=== PATIENT | female | born 1955 | race Caucasian/White ===

== ENCOUNTER 2019-02-02 11:28 | Observation (INO) | payer MEDICARE, MEDICAID, SELFPAY ==
[2019-02-02] VITALS (14 sets, daily range): BP systolic 81–126; BP diastolic 40–71; PULSE 70–106; RESP 15–20; TEMP 36.6–38; O2SAT 95–98; BMI 39.3
--- NOTE | ~2019-02-02 | XR_ITS ---
EXAMINATION: XR retrograde pyelo w/stent LT DATE: 02/02/2019 17:20 INDICATION: Left-sided ureteral stent placement TECHNIQUE: 162 fluoroscopic images of the abdomen and pelvis were obtained during procedure performed by Dr. Brody. Radiologist was not present for the imaging or procedure. The amount of fluoroscopy time used during this procedure was 1.0 minutes. COMPARISON: CT dated 02/02/2019 FINDINGS: Initial image demonstrates retrograde contrast injection into the left ureter. The mid to distal uret er appears normal. There is a filling defect consistent with stone previously seen on prior CT at the transition to a dilated proximal left ureter with moderate left hydronephrosis. Subsequent images de monstrate placement of a left internal ureteral stent with proximal loop formed at the left renal pel vis. The distal tip is in the bladder. IMPRESSION: 1. Obstructing stone at the proximal left ureter with moderate left hydronephrosis. 2. Left internal ureteral stent placement which appears in expected position. See procedure note for further detail. Reviewed, dictated and finalized at location A. TIONAL NURSE IMPRESSION: 1. Obstructing stone at the proximal left ureter with moderate left hydronephro sis. 2. Left internal ureteral stent placement which appears in expected position. S ee procedure note for further detail.
--- NOTE | ~2019-02-02 | CT_ITS ---
EXAMINATION: CT abdomen pelvis wo con EXAM DATE: 02/02/2019 14:47 INDICATION: Left flank pain. TECHNIQUE: Spiral CT of the abdomen and pelvis was performed without contrast. Axial, coronal and s agittal images were reviewed. The dose-length product (DLP) for this examination was 1442.76 mGy-cm. The exposure was tailored according to patient size (auto mA exposure control), and iterative recon struction (ASIR) was used as additional dose reduction technique. There is no prior study for compar elba. FINDINGS: The liver, spleen, adrenal glands and pancreas are unremarkable. Gallbladder not identifie d, patient likely has had cholecystectomy. There are 2 contiguous stones in the proximal aspect of t he left ureter measuring 6 and 5 mm. There is moderate left-sided obstructive nephropathy. Several ad ditional left calyceal stones up to 5 mm. There is a right mid calyceal 3 mm stone. The uterus is no t identified and has likely been surgically resected. The bladder is unremarkable. There is no retr operitoneal or pelvic lymphadenopathy. There is mild to moderate scattered arteriosclerotic disease . The appendix is not positively visualized. There is no pericecal inflammatory change to suggest appe ndicitis. The stomach and small bowel are unremarkable. There is expected amount of colonic stool. No free intraperitoneal gas. Mild cardiomegaly and trace pericardial effusion. The lung bases a re unremarkable. There are no osteoblastic or osteolytic lesions identified. IMPRESSION: 1. Left proximal ureteral contiguous stones measuring 6 and 5 mm, moderate obstructive nephropathy. Urologist consultants would appreciate KUB as baseline for follow-up, treatment planning. Reviewed, dictated and finalized at location A. ING MACHINE OPERATOR IMPRESSION: 1. Left proximal ureteral contiguous stones measuring 6 and 5 mm, moderate obs tructive nephropathy. Urologist consultants would appreciate KUB as baseline for follow-up, treatment planning.
--- NOTE | ~2019-02-02 | XR_ITS ---
EXAMINATION: XR barium swallow modified EXAM DATE: 02/04/2019 14:11 INDICATION: Observed episode of choking. Dysphagia. TECHNIQUE: Modified barium esophagram was performed by myself to administered fluoroscopy, in conjun ction with speech pathologist who administered barium in varying consistencies as per speech patholog ist documentation. This was recorded on tape. The DAP for this procedure was 1.5 Gycm2. FINDINGS: Oral stage: Adequate function. Pharyngeal phase: Adequate function. Laryngeal penetration: None. Aspiration: None. Laryngeal sensitivity: Present. IMPRESSION: Patient tolerated oral feedings in the upright position. Please refer to speech patholo gist findings and specific feeding recommendations. Reviewed, dictated and finalized at location A. CULTURAL PRODUCE SORTER IMPRESSION: Patient tolerated oral feedings in the upright position. Please r efer to speech pathologist findings and specific feeding recommendations.
--- NOTE | ~2019-02-02 | XR_ITS ---
EXAMINATION: XR abdomen/kub 1V DATE: 02/03/2019 07:51 INDICATION: Ureteral stone. TECHNIQUE: A supine view of the abdomen on 2 radiographs was obtained. COMPARISON: CT abdomen and pelvis 02/02/2019 FINDINGS: There are no dilated loops of bowel. There is a left internal ureteral stent in expected po sition. The kidneys are obscured by bowel. There are 5 mm and 6 mm stones in proximal left ureter. Th ere is a 5 mm stone in left kidney. IMPRESSION: 1. 5 mm and 6 mm stones in proximal left ureter with left internal ureteral stent in expected positio n. 2. 5 mm left kidney stone. Reviewed, dictated and finalized at location A. OPENER IMPRESSION: 1. 5 mm and 6 mm stones in proximal left ureter with left internal ureteral kerline nt in expected position. 2. 5 mm left kidney stone.
--- NOTE | 2019-02-02 11:47 | ECG_ITS ---
Measurements Intervals [place] Rate: 94 P: 51 SC: 140 QRS: 24 QRSD: 96 T: 31 QT: 317 QTc: 397 Interpretive Statements SINUS RHYTHM FREQUENT VENTRICULAR PREMATURE COMPLEXES POSSIBLE LEFT ATRIAL ENLARGEMENT DELAYED PRECORDIAL R/S TRANSITION BORDERLINE ST-T WAVE ABNORMALITY- INF/LAT LEADS BASELINE WANDER- II, III, AVR, AVL, AVF, V5 ABNORMAL ECG Electronically Signed On 02-02-2019 12:10:06 BL[employer]ORCH [employer]URNER by Marvin Snider D.O.
--- NOTE | 2019-02-02 12:10 | ED.BACK ---
HPI - Back Pain/Injury General Chief Complaint: Back Pain/Injury Stated Complaint: Back pain, abd pain Time Seen by Provider: 02/02/19 11:54 Source: patient Mode of arrival: ambulatory Limitations: no limitations History of Present Illness HPI Narrative: Pt is a 63 y/o female who presents to the ED with c/o sharp lt-sided back pain and lower ABD pain that started suddenly yesterday after she was done putting up [place] decorations. She notes that she has never had this pain before. While she was in the ED waiting room she started feeling dizzy and when they checked her temperature it was high. Pt denies Sx of a fever, cough, vomiting, dysuria, or diarrhea. She reports nausea and notes that her last BM was yesterday and it was small. She also notes that she occasioanlly has hematuria. Pt has a PSHx of a cholecystectomy and an appendectomy. MD elicited complaint: back pain Onset (ago): day(s) (yesterday) Timing: constant Similar Symptoms Previously: No Quality: sharp Location: left flank Context: other (putting up [place] decorations) Associated symptoms: abdominal pain (lower), hematuria and other (nausea) Related Data Home Medications Medication Instructions Recorded Confirmed bupropion HCl 100 mg PO BID 02/02/19 02/02/19 chlorthalidone 25 mg PO DAILY 02/02/19 02/02/19 fenofibrate 160 mg PO DAILY 02/02/19 02/02/19 insulin glargine U-300 conc 10 unit SUBCUT DAILY 02/02/19 02/02/19 [Toudaniela SoloStar U-300 Insulin] liraglutide [Victoza 3-Frandy] 0.6 mg SUBCUT DAILY 02/02/19 02/02/19 losartan 25 mg PO DAILY 02/02/19 02/02/19 metformin 1,000 mg PO DAILY 02/02/19 02/02/19 mirtazapine 15 mg PO HS 02/02/19 02/02/19 montelukast 10 mg PO DAILY 02/02/19 02/02/19 omeprazole 20 mg PO DAILY 02/02/19 02/02/19 oxybutynin chloride 10 mg PO DAILY 02/02/19 02/02/19 pioglitazone 30 mg PO DAILY 02/02/19 02/02/19 rosuvastatin 20 mg PO DAILY 02/02/19 02/02/19 sertraline 50 mg PO DAILY 02/02/19 02/02/19 topiramate 200 mg PO DAILY 02/02/19 02/02/19 varenicline [Chantix] 1 mg PO BID 02/02/19 02/02/19 Allergies Allergy/AdvReac Type Severity Reaction Status Date / Time coconut Allergy Unknown Verified 02/02/19 11:29 latex Allergy Rash Verified 02/02/19 10:30 Penicillins Allergy Dyspnea / Verified 02/02/19 10:30 SOB potassium Allergy Rash Verified 02/02/19 10:31 TAPE Allergy Rash Uncoded 02/02/19 10:29 Review of Systems Review of Systems: All systems reviewed & are unremarkable except as noted in HPI and below Constitutional: Constitutional: Denies fever(s) Respiratory: Respiratory: Denies cough Gastrointestinal: Gastrointestinal: Reports abdominal pain (lower), Denies diarrhea, Reports nausea and Denies vomiting Genitourinary: Genitourinary: Reports hematuria and Denies dysuria Musculoskeletal: Musculoskeletal: Reports back pain (lt) Neurologic: Reports dizziness PMFSH Past Medical History Medical History (Updated 02/02/19 @ 16:50 by Delonte Hernandez MD) Anxiety (Acute) Arthritis (Acute) Bipolar 1 disorder (Acute) Clavicle fracture (Acute) Depression (Acute) Diabetes mellitus (Acute) Epilepsy (Acute) Glaucoma (Acute) HLD (hyperlipidemia) (Acute) HTN (hypertension) (Acute) Kidney stones (Acute) Parkinson's disease (Acute) Pneumonia (Acute) Seizures (Acute) TIA (transient ischemic attack) (Acute) Surgical History Surgical History (Updated 02/02/19 @ 12:39 by Anh Mckeon) H/O left knee surgery (Acute) H/O tubal ligation (Acute) Hx of appendectomy (Acute) Hx of cholecystectomy (Acute) Hx of tonsillectomy (Acute) Social History Social History Alcohol intake: current Exam Const: General: healthy appearing, no acute distress and well developed Nutritional Appearance: obese morbidly obese Orientation/consciousness: oriented x3 (alert) and other (Alert) Limitations: no limitations HENMT: Head: normocephalic and atraumatic Ears: external ears normal General nose exam: no nasal discharge and no epist
[2019-02-02 14:44] LABS: Add Urine Microscopic? YES; Appearance Urine Cloudy (Clear); Bacteria Urine Trace /hpf; Bilirubin Urine Negative (Negative); Blood Urine 1+ (Negative); Color Urine Yellow (Yellow); Glucose Urine UA Negative (Negative); Ketones Urine Negative (Negative); Leukocyte Esterase Ur Trace LEU/UL (Negative); Mucus Urine Rare /lpf; Nitrate Urine Negative (Negative); Protein Urine 1+ mg/dL (Negative); Specific Grav Ur 1.019 (1.001-1.035); Squamous Epithelial Cell Urine Many /hpf (Few); WBC Urine 16-20
[2019-02-02 14:50] LABS: Alanine Aminotransferase 23 U/L (4-35); Albumin Level 4.1 g/dL (3.5-5.1); Alkaline Phosphatase 77 U/L (38-126); Aspartate Amino Transferase 23 U/L (14-36); Bilirubin,Total 0.6 mg/dL (0.2-1.3); Blood Urea Nitrogen 28 mg/dL (7-17); Carbon Dioxide 23 mmol/L (22-30); Chloride 102 mmol/L (98-107); Estimated CRCL calculation 57 ml/min; Estimated Glomerular Filt Rate 46; Glucose 113 mg/dL (65-105); Potassium 3.1 mmol/L (3.4-5.0); Sodium 136 mmol/L (137-145)
[2019-02-02 14:54] LABS: Basophils Percent Auto 0.3 % (0.2-1.2); Hemoglobin 12.4 g/dL (12.0-15.0); Immature Granulocyte Absolute 0.06 K/mm3 (0.00-0.031); Immature Granulocyte Percent A 0.5 % (0-0.5); Immature Platelet Fraction Pct 16.6 % (0.9-11.2); Lymphocytes Absolute Auto 1.25 K/mm3 (0.9-3.2); Lymphocytes Percent Auto 9.4 % (18.3-44.2); Mean Corpuscular Hemoglobin 27.9 pg (26-34); Mean Corpuscular Volume 90.1 fl (80-100); Mean Platelet Volume 14.4 fl (7.4-10.4); Monocytes Percent Auto 7.7 % (2.6-8.5); Neutrophils Absolute Auto 10.9 K/mm3 (1.3-6.7); Neutrophils Percent Auto 82.1 % (45.5-73.1); Platelet Count Result 121 k/mm3 (150-375); Red Blood Count 4.44 M/mm3 (4.2-5.4); Red Cell Distribution Width 16.4 % (11.5-14.5); White Blood Count 13.3 K/mm3 (4.5-10.0)
[2019-02-02 15:06] LABS: Troponin I < 0.012 ng/mL (0.000-0.034)
[2019-02-02] MEDS: CIPROFLOXACIN 400 MG/D5W 200ML 200 ML 200 MG IVPB (15:37)
[2019-02-02] MEDS: KETOROLAC 30 MG/ML VIAL (*BKC) 15 MG IV PUSH (15:37)
--- NOTE | 2019-02-02 16:44 | WPDANESEPPF ---
Anes - Initial Pre Proc Eval Procedure: Operation Date: 02/02/19 17:15 Proposed Procedures p Cystoscopy, With Stent Placement - Dell Brody MD <Carlos Toure MD - Last Filed: 02/02/19 16:45> Date/Time: 02/02/19 16:44 <Carlos Toure MD - Last Filed: 02/02/19 16:45> Surgeon: Dell Brody MD <Carlos Toure MD - Last Filed: 02/02/19 16:45> Pre Op Diagnosis: Back pain, abd pain <Carlos Toure MD - Last Filed: 02/02/19 16:45> Patient Data Age: 63 Gender: F Height: 1.7 m Weight: 114.5 kg <Carlos Toure MD - Last Filed: 02/02/19 16:45> Last Vital Signs Temp 38.0 C H 02/02/19 12:11 Pulse 100 02/02/19 15:59 Resp 20 02/02/19 15:59 BP 113/59 L 02/02/19 15:59 Pulse Ox 95 02/02/19 15:59 <Carlos Toure MD - Last Filed: 02/02/19 16:45> Allergies Allergy/AdvReac Type Severity Reaction Status Date / Time coconut Allergy Unknown Verified 02/02/19 11:29 latex Allergy Rash Verified 02/02/19 10:30 Penicillins Allergy Dyspnea / Verified 02/02/19 10:30 SOB potassium Allergy Rash Verified 02/02/19 10:31 TAPE Allergy Rash Uncoded 02/02/19 10:29 <Carlos Toure MD - Last Filed: 02/02/19 16:45> Home Medications Medication Instructions Recorded Confirmed Type bupropion HCl 100 mg PO BID 02/02/19 02/02/19 History chlorthalidone 25 mg PO DAILY 02/02/19 02/02/19 History fenofibrate 160 mg PO DAILY 02/02/19 02/02/19 History insulin glargine U-300 conc 10 unit SUBCUT DAILY 02/02/19 02/02/19 History [Toujeo SoloStar U-300 Insulin] liraglutide [Victoza 3-Frandy] 0.6 mg SUBCUT DAILY 02/02/19 02/02/19 History losartan 25 mg PO DAILY 02/02/19 02/02/19 History metformin 1,000 mg PO DAILY 02/02/19 02/02/19 History mirtazapine 15 mg PO HS 02/02/19 02/02/19 History montelukast 10 mg PO DAILY 02/02/19 02/02/19 History omeprazole 20 mg PO DAILY 02/02/19 02/02/19 History oxybutynin chloride 10 mg PO DAILY 02/02/19 02/02/19 History pioglitazone 30 mg PO DAILY 02/02/19 02/02/19 History rosuvastatin 20 mg PO DAILY 02/02/19 02/02/19 History sertraline 50 mg PO DAILY 02/02/19 02/02/19 History topiramate 200 mg PO DAILY 02/02/19 02/02/19 History varenicline [Chantix] 1 mg PO BID 02/02/19 02/02/19 History <Carlos Toure MD - Last Filed: 02/02/19 16:45> Laboratory Tests 02/02/19 02/02/19 02/02/19 13:05 13:18 14:25 WBC 13.3 K/mm3 H K/mm3 (4.5-10.0) RBC 4.44 M/mm3 M/mm3 (4.2-5.4) Hgb 12.4 g/dL g/dL (12.0-15.0) Hct 40.0 % % (37.0-47.0) MCV 90.1 fl fl (80-100) MCH 27.9 pg pg (26-34) MCHC 31.0 g/dl L g/dl (32-36) RDW 16.4 % H % (11.5-14.5) Plt Count 121 k/mm3 L k/mm3 (150-375) MPV 14.4 fl H fl (7.4-10.4) Immature Gran % (Auto) 0.5 % % (0-0.5) Neut % (Auto) 82.1 % H % (45.5-73.1) Lymph % (Auto) 9.4 % L % (18.3-44.2) [place] % (Auto) 7.7 % % (2.6-8.5) Eos % (Auto) 0.0 % % (0-4.4) Baso % (Auto) 0.3 % % (0.2-1.2) Lymph # (Auto) 1.25 K/mm3 K/mm3 (0.9-3.2) [place] # (Auto) 1.0 K/mm3 H K/mm3 (0.1-0.6) Eos # (Auto) 0.0 K/mm3 K/mm3 (0-0.3) Baso # (Auto) 0.0 K/mm3 K/mm3 (0.0-0.1) Abs Immat Gran (auto) 0.06 K/mm3 H K/mm3 (0.00-0.031) Absolute Neuts (auto) 10.9 K/mm3 H K/mm3 (1.3-6.7) Absolute Nucleated RBC 0.0 K/mm3 K/mm3 (0.0-0.012) Nucleated RBC % 0.0 % % (0.0-0.2) % Immature Plt Fraction 16.6 % H % (0.9-11.2) Sodium 136 mmol/L L mmol/L (137-145) Potassium 3.1 mmol/L L mmol/L (3.4-5.0) Chloride 102 mmol/L mmol/L (98-107) Carbon Dioxide 23 mmol/L mmol/L (22-30) BUN 28 mg/dL H mg/dL (7-17) Creatinine 1.20 mg/dL H mg/dL (0.7-1.0) Estim Creat Clear Calc 57 ml/min ml/min Est
[2019-02-02] MEDS: LACTATED RINGERS 1,000 ML 30 ML IV CONT (16:45)
[2019-02-02 16:47] LABS: Glucose Point of Care 139 (65-105)
--- NOTE | 2019-02-02 16:48 | WPDURCON ---
Assessment and Plan Assessment and plan (1) Hydronephrosis with renal and ureteral calculus obstruction: Code(s): N13.2 - Hydronephrosis with renal and ureteral calculous obstruction Status: Acute Assessment and Plan: She will be taken to the OR today for left ureteral stent placement. She understands I will not be taking care of the stone and we will plan on this in a delayed fashion. Should be kept on antibiotics due to low-grade fever and concern for infection. Once urine cultures return she can be transitioned to p.o. antibiotics. Will get a KUB in the morning to see if the stone is visible (2) Ureteral stone with hydronephrosis: Code(s): N13.2 - Hydronephrosis with renal and ureteral calculous obstruction Status: Acute (3) Abnormal finding on urinalysis: Code(s): R82.90 - Unspecified abnormal findings in urine Status: Acute HPI Date Seen: 02/02/19 Requesting Physician: Dell Brody MD Primary Care Provider: UNKNOWN,DOCTOR Consult Narrative Narrative: Svetlana Velasquez is a 63 year old female she has a prior history of stone disease which has required lithotripsy. She presents with left flank pain since last evening. She has had low-grade fevers to 100.4. She denies nausea vomiting she denies blood in the urine or significant dysuria. CT scan was done in the emergency room which showed 2 proximal ureteral stones as well as hydronephrosis. Due to the concern of infection should be taken to the operating room for ureteral stent. She understands I will not be removing her stones and now be done in delayed fashion. She has been unable to tolerate any food or fluids due to her pain Review of Systems Review of Systems: All systems reviewed & are unremarkable except as noted in HPI and below PMFSH Past Medical History Medical History (Updated 02/02/19 @ 16:54 by Dell Brody MD) Anxiety (Acute) Arthritis (Acute) Bipolar 1 disorder (Acute) Clavicle fracture (Acute) Depression (Acute) Diabetes mellitus (Acute) Epilepsy (Acute) Glaucoma (Acute) HLD (hyperlipidemia) (Acute) HTN (hypertension) (Acute) Kidney stones (Acute) Parkinson's disease (Acute) Pneumonia (Acute) Seizures (Acute) TIA (transient ischemic attack) (Acute) Surgical History Surgical History (Updated 02/02/19 @ 12:39 by Anh Mckeon) H/O left knee surgery (Acute) H/O tubal ligation (Acute) Hx of appendectomy (Acute) Hx of cholecystectomy (Acute) Hx of tonsillectomy (Acute) Family History Family History (Updated 02/02/19 @ 16:51 by Dell Brody MD) Sibling Nephrolithiasis Social History Social History Alcohol intake: current Meds Home Medications and Allergies Home Medications Medication Instructions Recorded Confirmed Type bupropion HCl 100 mg PO BID 02/02/19 02/02/19 History chlorthalidone 25 mg PO DAILY 02/02/19 02/02/19 History fenofibrate 160 mg PO DAILY 02/02/19 02/02/19 History insulin glargine U-300 conc 10 unit SUBCUT DAILY 02/02/19 02/02/19 History [Toujeo SoloStar U-300 Insulin] liraglutide [Victoza 3-Frandy] 0.6 mg SUBCUT DAILY 02/02/19 02/02/19 History losartan 25 mg PO DAILY 02/02/19 02/02/19 History metformin 1,000 mg PO DAILY 02/02/19 02/02/19 History mirtazapine 15 mg PO HS 02/02/19 02/02/19 History montelukast 10 mg PO DAILY 02/02/19 02/02/19 History omeprazole 20 mg PO DAILY 02/02/19 02/02/19 History oxybutynin chloride 10 mg PO DAILY 02/02/19 02/02/19 History pioglitazone 30 mg PO DAILY 02/02/19 02/02/19 History rosuvastatin 20 mg PO DAILY 02/02/19 02/02/19 History sertraline 50 mg PO DAILY 02/02/19 02/02/19 History topiramate 200 mg PO DAILY 02/02/19 02/02/19 History varenicline [Chantix] 1 mg PO BID 02/02/19 02/02/19 History Allergies Allergy/AdvReac Type Severity Reaction Status Date / Time coconut Allergy Unknown Verified 02/02/19 11:29 latex Allergy Rash Verified 02/02/19 10:30 Penicillins Allergy Dyspnea / Verified 01/10
[2019-02-02] MEDS: LIDOCAINE HCL 2% GEL UROJET 10 ML PKG MUCOUS MEM (17:10)
--- NOTE | 2019-02-02 17:17 | PM.PROC ---
Date of procedure: 02/02/19 Pre-op diagnosis: Back pain, abd pain Left proximal ureteral stone Post-op diagnosis: same Procedure performed: Cystoscopy, left retrograde pyelogram, left ureteral stent placement Description of procedure: She was correctly identified and informed consent was obtained. She is brought to the operating room. She was given mac anesthesia. She was placed in the dorsal thigh position. She was prepped and draped in a sterile fashion. She was given appropriate preop antibiotics. Cystoscopy revealed a normal-appearing bladder. I did a gentle retrograde pyelogram on the left showing a proximal ureteral stone and significant hydronephrosis proximal to the stone. I was able to negotiate an angled Glidewire to the kidney. I then loaded a 4 cm variable length stent. The proximal coils in the kidney. Distal closed the bladder. The bladder was then drained. She was then awakened and transferred to the PACU in stable condition. Implants: 4.8 variable length stent Anesthesia: MAC Surgeon: Dell Brody MD Estimated blood loss (mL): 1 Drains: No Packing: No Pathology: none sent Complications: No immediate complications Condition: stable Disposition: PACU
[2019-02-02] MEDS: LACTATED RINGERS 1,000 ML 200 ML IV CONT (18:00)
[2019-02-02 18:12] LABS: Glucose Point of Care 109 (65-105)
--- NOTE | 2019-02-02 18:53 | SUR.PHASEI ---
1848 report to asim gonsalez.
--- NOTE | 2019-02-02 20:53 | ADMGEN ---
This patient, Svetlana Velasquez, was admitted to Medical Room 245-. Patient/family oriented to hospital policies and general routines including ID bracelet, bed and alarms, visiting hours, pain management, procedures, bathroom and other care routines, personal items, smoking policy, room service/diet, and visiting hours. Valuables list has been completed. Information on how to activate the Rapid Response Team has been discussed. Patient/Family are encouraged to report perceived risks to care and to ask questions if they do not understand what they are told or what they should do. PT admitted at 1900.
[2019-02-02] MEDS: DOCUSATE SODIUM 100 MG CAPSULE PO (21:31)
[2019-02-02 21:32] LABS: Glucose Point of Care 188 (65-105)
[2019-02-02] MEDS: OXYBUTYNIN CHLORIDE 5 MG TABLET PO (21:32)
[2019-02-02] MEDS: MORPHINE SULFATE 2 MG/ML INJ IV PUSH (22:36)
[2019-02-02] MEDS: MIRTAZAPINE 15 MG TABLET PO (23:33)
--- NOTE | 2019-02-02 23:33 | PM.IMCN ---
Assessment and Plan Assessment and plan (1) Kidney stones: Code(s): N20.0 - Calculus of kidney Status: Acute Assessment and Plan: Obstructing stone in the proximal left ureter with moderate left hydro nephrosis. Urology took the patient down for stent. She is placed on Cipro . Further recommendations per Urology. Pain management per Urology. (2) Diabetes mellitus: Code(s): E11.9 - Type 2 diabetes mellitus without complications Status: Chronic Assessment and Plan: Check A1c. Sliding scale insulin. I would hold her oral diabetic medication as she has acute renal failure and hydronephrosis. (3) Depression: Code(s): F32.9 - Major depressive disorder, single episode, unspecified Status: Chronic Assessment and Plan: Patient stated that she has bipolar disease. She is on Wellbutrin. And Zoloft and Remeron (4) Anxiety: Code(s): F41.9 - Anxiety disorder, unspecified Status: Chronic Assessment and Plan: Continue with Wellbutrin and Zoloft (5) Ureteral stone with hydronephrosis: Code(s): N13.2 - Hydronephrosis with renal and ureteral calculous obstruction Status: Acute Assessment and Plan: Stented per Urology. (6) Acute UTI: Code(s): N39.0 - Urinary tract infection, site not specified Status: Acute Assessment and Plan: Cipro. Cultures. (7) HTN (hypertension): Code(s): I10 - Essential (primary) hypertension Status: Chronic Assessment and Plan: Holding diuretic. Due to acute renal failure holding losartan due to acute renal failure. (8) HLD (hyperlipidemia): Code(s): E78.5 - Hyperlipidemia, unspecified Status: Chronic Assessment and Plan: Continue with fenofibrate and Crestor (9) Glaucoma: Code(s): H40.9 - Unspecified glaucoma Status: Chronic (10) Epilepsy: Code(s): G40.909 - Epilepsy, unspecified, not intractable, without status epilepticus Status: Chronic Assessment and Plan: Topamax HPI Data of Consult Consult date: 02/02/19 Requesting Physician: Dell Brody MD Primary Care Provider: UNKNOWN,DOCTOR Consult Narrative Narrative: Svetlana Velasquez is a 63 year old female who has had a prior history of having kidney stones in the past this required lithotripsy. The patient said that she felt hot and felt like she is running low-grade fever which was 100.4. The patient stated that this occurred all of a sudden it felt worse than what it typically feels to have a kidney stone. She hashad left flank pain since last night. The patient started to feel dizzy in the emergency room. She also noted that she occasionally had hematuria. She had 1+ blood in her urine 16-[address] of the abdomen was read as a left proximal ureteral continue just stone measuring 6 and 5 mm moderate obstructive nephropathy. Urology was consulted and patient was taken for stent today. We were consulted for medical management. Date of service 02/02/2019. The patient was just given pain medication prior to me coming into the room. She was also started on IV Cipro. Restarted per Urology. Review of Systems Review of Systems: All systems reviewed & are unremarkable except as noted in HPI and below Constitutional: Constitutional: Reports as per HPI and Reports no additional constitutional complaints Eyes: Eyes: Reports as per HPI and Reports no additional eye complaints ENT: Reports system reviewed and no additional complaints, except as documented and Reports hearing normal Cardiovascular: Cardiovascular: Reports no additional cardiovascular complaints Respiratory: Respiratory: Reports no additional respiratory complaints and Reports no additional respiratory complaints Gastrointestinal: Gastrointestinal: Reports as per HPI, Reports bloating, Reports nausea and Reports vomiting Genitourinary: Genitourinary: Reports hematuria and Reports urinary f
[2019-02-03] MEDS: POTASSIUM CHLORIDE 20 MEQ TABLET PO (00:49)
[2019-02-03 01:06] VITALS: BP 100/56; PULSE 82; RESP 18; TEMP 36.7; O2SAT 95
[2019-02-03] MEDS: CIPROFLOXACIN 400 MG/D5W 200ML 200 ML 200 MG IVPB ×2 (03:15→14:52)
[2019-02-03 06:00] VITALS: BP 102/58; PULSE 100; RESP 22; TEMP 37.6; O2SAT 95
[2019-02-03 06:18] LABS: Basophils Percent Auto 0.3 % (0.2-1.2); Hematocrit 35.5 % (37.0-47.0); Hemoglobin 11.4 g/dL (12.0-15.0); Immature Granulocyte Absolute 0.11 K/mm3 (0.00-0.031); Immature Granulocyte Percent A 0.9 % (0-0.5); Immature Platelet Fraction Pct 12.9 % (0.9-11.2); Lymphocytes Absolute Auto 1.15 K/mm3 (0.9-3.2); Lymphocytes Percent Auto 9.9 % (18.3-44.2); Mean Corpuscular HGB Conc 32.1 g/dl (32-36); Mean Corpuscular Volume 87.2 fl (80-100); Mean Platelet Volume 13.8 fl (7.4-10.4); Monocytes Absolute Auto 1.1 K/mm3 (0.1-0.6); Monocytes Percent Auto 9.2 % (2.6-8.5); Neutrophils Absolute Auto 9.3 K/mm3 (1.3-6.7); Neutrophils Percent Auto 79.7 % (45.5-73.1); Platelet Count Result 96 k/mm3 (150-375); Red Blood Count 4.07 M/mm3 (4.2-5.4); Red Cell Distribution Width 16.1 % (11.5-14.5); White Blood Count 11.6 K/mm3 (4.5-10.0)
[2019-02-03 06:29] LABS: Alanine Aminotransferase 17 U/L (4-35); Albumin Level 3.4 g/dL (3.5-5.1); Alkaline Phosphatase 56 U/L (38-126); Aspartate Amino Transferase 15 U/L (14-36); Bilirubin,Total 0.7 mg/dL (0.2-1.3); Blood Urea Nitrogen 33 mg/dL (7-17); Carbon Dioxide 22 mmol/L (22-30); Chloride 103 mmol/L (98-107); Estimated CRCL calculation 49 ml/min; Estimated Glomerular Filt Rate 38; Glucose 130 mg/dL (65-105); Potassium 3.5 mmol/L (3.4-5.0); Sodium 135 mmol/L (137-145)
[2019-02-03 07:14] LABS: Hemoglobin A1C 6.3 % (<5.7)
[2019-02-03 08:35] LABS: Glucose Point of Care 129 (65-105)
[2019-02-03] MEDS: TOPIRAMATE 100 MG TABLET 200 MG PO (09:12)
[2019-02-03] MEDS: buPROPion HCL 100 MG TABLET PO ×2 (09:12→17:02)
[2019-02-03] MEDS: ROSUVASTATIN 10 MG TABLET 20 MG PO (09:12)
[2019-02-03] MEDS: VARENICLINE 1 MG TABLET PO ×2 (09:12→18:27)
[2019-02-03] MEDS: DOCUSATE SODIUM 100 MG CAPSULE PO ×2 (09:13→17:02)
[2019-02-03] MEDS: FENOFIBRATE 160 MG TABLET PO (09:13)
[2019-02-03] MEDS: PANTOPRAZOLE SOD SESQUIHYDRATE 20 MG TAB PO (09:13)
[2019-02-03] MEDS: OXYBUTYNIN CHLORIDE 5 MG TABLET PO ×3 (09:13→17:02)
[2019-02-03] MEDS: SERTRALINE HCL 50 MG TABLET PO (09:14)
--- NOTE | 2019-02-03 09:26 | WPDANESPN ---
Anes - Prog Note Post-Op Date/Time: 02/03/19 09:26 Cardiovascular status: normal Respiratory status: normal Airway patency: baseline Mental status: baseline Post-Op hydration status: normal Vital Signs: Last Vital Signs Temp 37.6 C 02/03/19 06:00 Pulse 100 02/03/19 06:00 Resp 22 H 02/03/19 06:00 BP 102/58 L 02/03/19 06:00 Pulse Ox 95 02/03/19 06:00 I/O: Intake & Output 02/02/19 02/03/19 02/03/19 23:59 07:59 15:59 Intake Total 1400 450 Output Total 650 Balance 1400 -200 Laboratory Tests 02/03/19 05:32 02/03/19 05:32 02/02/19 02/02/19 02/02/19 13:05 13:05 13:18 WBC 13.3 H RBC 4.44 Hgb 12.4 Hct 40.0 MCV 90.1 MCH 27.9 MCHC 31.0 L RDW 16.4 H Plt Count 121 L MPV 14.4 H Immature Gran % (Auto) 0.5 Neut % (Auto) 82.1 H Lymph % (Auto) 9.4 L [place] % (Auto) 7.7 Eos % (Auto) 0.0 Baso % (Auto) 0.3 Lymph # (Auto) 1.25 [place] # (Auto) 1.0 H Eos # (Auto) 0.0 Baso # (Auto) 0.0 Abs Immat Gran (auto) 0.06 H Absolute Neuts (auto) 10.9 H Absolute Nucleated RBC 0.0 Nucleated RBC % 0.0 % Immature Plt Fraction 16.6 H Sodium 136 L Potassium 3.1 L Chloride 102 Carbon Dioxide 23 BUN 28 H Creatinine 1.20 H Estim Creat Clear Calc 57 Estimated GFR 46 L Glucose 113 H POC Capillary Glucose Hemoglobin A1c 6.3 H Calcium 9.0 Total Bilirubin 0.6 AST 23 ALT 23 Alkaline Phosphatase 77 Troponin I < 0.012 Total Protein 7.0 Albumin 4.1 Urine Color Urine Appearance Urine pH Ur Specific [place] Urine Protein Urine Glucose (UA) Urine Ketones Ur Blood (Man) Urine Nitrate Urine Bilirubin Urine Urobilinogen Leukocyte Esterase Rfl Urine RBC Urine WBC Ur Squamous Epith Cells Urine Bacteria Urine Mucus 02/02/19 02/02/19 02/02/19 14:25 16:45 18:09 WBC RBC Hgb Hct MCV MCH MCHC RDW Plt Count MPV Immature Gran % (Auto) Neut % (Auto) Lymph % (Auto) [place] % (Auto) Eos % (Auto) Baso % (Auto) Lymph # (Auto) [place] # (Auto) Eos # (Auto) Baso # (Auto) Abs Immat Gran (auto) Absolute Neuts (auto) Absolute Nucleated RBC Nucleated RBC % % Immature Plt Fraction Sodium Potassium Chloride Carbon Dioxide BUN Creatinine Estim Creat Clear Calc Estimated GFR Glucose POC Capillary Glucose 139 H 109 Hemoglobin A1c Calcium Total Bilirubin AST ALT Alkaline Phosphatase Troponin I Total Protein Albumin Urine Color Yellow Urine Appearance Cloudy H Urine pH 6.0 Ur Specific [place] 1.019 Urine Protein 1+ H Urine Glucose (UA) Negative Urine Ketones Negative Ur Blood (Man) 1+ H Urine Nitrate Negative Urine Bilirubin Negative Urine Urobilinogen 4.0 H Leukocyte Esterase Rfl Trace H Urine RBC 3-5 H Urine WBC 16-20 H Ur Squamous Epith Cells Many H Urine Bacteria Trace Urine Mucus Rare 02/02/19 02/03/19 02/03/19 21:29 05:32 05:32 WBC 11.6 H RBC 4.07 L Hgb 11.4 L Hct 35.5 L MCV 87.2 MCH 28.0 MCHC 32.1 RDW 16.1 H Plt Count 96 L MPV 13.8 H Immature Gran % (Auto) 0.9 H Neut % (Auto) 79.7 H Lymph % (Auto) 9.9 L [place] % (Auto) 9.2 H Eos % (Auto) 0.0 Baso % (Auto) 0.3 Lymph # (Auto) 1.15 [place] # (Auto) 1.1 H Eos # (Auto) 0.0 Baso # (Auto) 0.0 Abs Immat Gran (auto) 0.11 H Absolute Neuts (auto) 9.3 H Absolute Nucleated RBC 0.0 Nucleated RBC % 0.0 % Immature Plt Fraction 12.9 H Sodium 135 L Potassium 3.5 Chloride 103 Carbon Dioxide 22 BUN 33 H Creatinine 1.40 H Estim Creat Clear Calc 49 Estimated GFR 38 L Glucose 130 H POC Capillary Glucose 188 H Hemoglobin A1c Calcium 9.0 Total Bilirubin 0.7 AST 15 ALT 1
--- NOTE | 2019-02-03 10:57 | PM.IMPN ---
Progress Note: A&P Assessment and Plan (1) Kidney stones: Code(s): N20.0 - Calculus of kidney Status: Acute Assessment and Plan: Pt sp Cystoscopy, lleft ureteral stent placement under urology. Wcc still high today and urine cultures are pending. Continue Iv ciprofloxacin and pain control today (2) Diabetes mellitus: Code(s): E11.9 - Type 2 diabetes mellitus without complications Status: Chronic Assessment and Plan: Check A1c. Sliding scale insulin. DM medications on hold presently (3) Depression: Code(s): F32.9 - Major depressive disorder, single episode, unspecified Status: Chronic Assessment and Plan: Mood stable. Patient has bipolar disease. She is on Wellbutrin. And Zoloft and Remeron (4) Anxiety: Code(s): F41.9 - Anxiety disorder, unspecified Status: Chronic Assessment and Plan: Mood stable. Continue with Wellbutrin and Zoloft (5) Ureteral stone with hydronephrosis: Code(s): N13.2 - Hydronephrosis with renal and ureteral calculous obstruction Status: Acute Assessment and Plan: Stented per Urology.See above (6) Acute UTI: Code(s): N39.0 - Urinary tract infection, site not specified Status: Acute Assessment and Plan: Pt is on iv Cipro. Awaiting urine Cultures. Wcc high today continue treatment (7) HTN (hypertension): Code(s): I10 - Essential (primary) hypertension Status: Chronic Assessment and Plan: Creat is 1.4 losartan on hold due to acute renal failure. (8) HLD (hyperlipidemia): Code(s): E78.5 - Hyperlipidemia, unspecified Status: Chronic Assessment and Plan: Continue with fenofibrate and Crestor (9) Glaucoma: Code(s): H40.9 - Unspecified glaucoma Status: Chronic (10) Epilepsy: Code(s): G40.909 - Epilepsy, unspecified, not intractable, without status epilepticus Status: Chronic Assessment and Plan: Topamax Subjective Interval history: DOS 02/03/2019 Svetlana Velasquez is a 63 year old female who has had a prior history of having kidney stones in the past this required lithotripsy. Pt still symptomatic with abdominal pain and chills. UA is positive for 1+ blood in her urine 16-[address] of the abdomen was read as a left proximal ureteral continue just stone measuring 6 and 5 mm moderate obstructive nephropathy. Pt sp Cystoscopy, lleft ureteral stent placement under urology. Wcc still high today and urine cultures are pending. Continue Iv ciprofloxacin and pain control today Review of Systems Review of Systems: All systems reviewed & are unremarkable except as noted in HPI and below Constitutional: Constitutional: Reports fever(s) Comments: low grade Gastrointestinal: Gastrointestinal: Reports abdominal pain Exam Const: General: cooperative, comfortable, no acute distress, well developed, awake, active and tired appearing Nutritional Appearance: well nourished and obese Orientation/consciousness: oriented to person, oriented to place, oriented to time and oriented x3 Limitations: no limitations Chest: Chest palpation & inspection: normal inspection of the chest Resp: Effort & Inspection: normal respiratory effort Auscultation: clear to auscultation bilaterally Percussion: percussion normal Cardio: Palpation: normal PMI Rhythm: abnormal rhythm irregularly irregular Peripheral pulses: pulses 2+ throughout GI: Inspection: normal to inspection Percussion: normal to percussion Auscultation: normal bowel sounds Rectal Exam: deferred Back/Spine/Pelvis: Back: CVA tenderness Cervical Spine: cervical ROM normal Thoracic/Lumbar Spine: thoracic and lumbar spine normal to inspection Pelvis: no pain with anterior-posterior compression Objective Data Vital Signs Vital Signs: Vital Signs - 24 hr 02/02/19 12:11 02/02/19 15:59 02/02/19 16:45 Temperature 38.0 C H 37.3 C Pulse Rate 94 100 70 Respiratory
[2019-02-03 13:29] LABS: Glucose Point of Care 161 (65-105)
[2019-02-03 14:00] VITALS: BP 111/83; PULSE 88; RESP 18; TEMP 37.1; O2SAT 97
--- NOTE | 2019-02-03 14:08 | WPDUROPN2 ---
Progress Note: A&P Assessment and Plan (1) Sepsis: Code(s): A41.9 - Sepsis, unspecified organism Status: Acute Assessment and Plan: Continue IV antibiotics, will likely send patient home tomorrow with appropriate oral antibiotics based on cultures results. (2) Acute UTI: Code(s): N39.0 - Urinary tract infection, site not specified Status: Acute (3) Ureteral stone with hydronephrosis: Code(s): N13.2 - Hydronephrosis with renal and ureteral calculous obstruction Status: Acute Assessment and Plan: Patient will need to take records with her and follow up with her Urologist at home to plan ESWL. Subjective Subjective Date/Time Seen: 02/03/19 14:08 POD #1 Cystoscopy, left ureteroscopy, left stent placement Review of Systems Respiratory: Respiratory: Reports no additional respiratory complaints Gastrointestinal: Gastrointestinal: Denies abdominal pain, Denies nausea and Denies vomiting Genitourinary: Genitourinary: Denies hematuria, Reports flank pain and Denies urinary urgency Exam Resp: Effort & Inspection: normal respiratory effort Cardio: Rate: regular rate GI: Palpation (GI): No abdominal tenderness and No tender Objective Data Vital Signs Vital Signs: Vital Signs - 24 hr 02/02/19 15:59 02/02/19 16:45 02/02/19 17:20 Temperature 99.2 F 99.9 F H Pulse Rate 100 70 106 H Respiratory Rate 20 16 19 Blood Pressure 113/59 L 100/58 L 81/45 L Pulse Oximetry 95 95 95 02/02/19 17:30 02/02/19 17:45 02/02/19 18:00 Temperature 99.4 F Pulse Rate 97 98 98 Respiratory Rate 18 17 20 Blood Pressure 108/71 97/64 L 97/64 L Pulse Oximetry 97 97 98 02/02/19 18:15 02/02/19 18:30 02/02/19 18:45 Temperature Pulse Rate 94 95 81 Respiratory Rate 15 15 15 Blood Pressure 98/48 L 99/40 L 99/40 L Pulse Oximetry 98 98 98 02/02/19 19:10 02/02/19 19:40 02/02/19 19:55 Temperature 97.9 F 97.9 F 98.0 F Pulse Rate 88 94 90 Respiratory Rate 20 20 20 Blood Pressure 95/49 L 96/48 L 99/50 L Pulse Oximetry 95 95 96 11/25/19 21:52 02/03/19 01:06 02/03/19 06:00 Temperature 97.9 F 98.1 F 99.6 F Pulse Rate 79 82 100 Respiratory Rate 18 18 22 H Blood Pressure 101/54 L 100/56 L 102/58 L Pulse Oximetry 95 95 95 Intake/Output Intake/Output: Intake & Output 01/31/19 02/01/19 02/02/19 02/03/19 23:59 23:59 23:59 23:59 Intake Total 1400 930 Output Total 650 Balance 1400 280 Meds/Results Medications: Active Medications Generic Name Dose Route Start Last Admin Trade Name Freq PRN Reason Stop Dose Admin Acetaminophen 650 mg 02/02/19 16:43 Tylenol Tablet PO Q4H PRN Mild Pain (1-3) or Fever Hydrocodone Bitart/Acetaminophen 1 tab 02/02/19 18:55 02/03/19 09:46 [place] 5-325 Mg PO 1 tab Q4H PRN Administration Pain Rated 1-6 Bupropion HCl 100 mg 02/03/19 09:00 02/03/19 09:12 Wellbutrin PO 100 mg BID CIARAN Administration Dextrose 12.5 gm 02/02/19 22:28 Dextrose 50% Syringe IV PUSH PRN PRN Hypoglycemia Protocol Dextrose 12.5 gm 02/02/19 23:31 Dextrose 50% Syringe IV PUSH PRN PRN Hypoglycemia Protocol Docusate Sodium 100 mg 02/02/19 18:55 02/03/19 09:13 Colace Cap PO 100 mg BID CIARAN Administration Enoxaparin Sodium 40 mg 02/03/19 09:00 02/03/19 09:21 Lovenox SUB-Q Not Given DAILY CIARAN Fenofibrate 160 mg 02/03/19 09:00 02/03/19 09:13 Fenofibrate PO 160 mg DAILY CIARAN Administration Glucagon 1 mg 02/02/19 22:28 Glucagon For Inj IM PRN PRN Hypoglycemia Protocol Glucagon 1 mg 02/02/19 23:31 Glucagon For Inj IM PRN PRN Hypoglycemia Protocol Glucose 15 gm 02/02/19 22:28 Glutose 15 PO PRN PRN Hypoglycemia Protocol Glucose 15 gm 02/02/19 23:31 Glutose 15 PO PRN PRN Hypoglycemia Protocol Ciprofloxacin/Dextrose 200 mls @ 200 mls/hr 02/03/19 03:00 02/03/
[2019-02-03 17:52] LABS: Glucose Point of Care 215 (65-105)
[2019-02-03] MEDS: INSULIN ASPART (*BKC) 100 UNITS/ML SUB-Q (17:53)
[2019-02-03 19:00] VITALS: BMI 39.2
[2019-02-03 19:50] VITALS: PULSE 88; RESP 18; O2SAT 97
[2019-02-03] MEDS: MIRTAZAPINE 15 MG TABLET PO (20:54)
[2019-02-03 20:56] LABS: Glucose Point of Care 152 (65-105)
[2019-02-03 21:59] VITALS: BP 100/57; PULSE 108; RESP 22; TEMP 37.6; O2SAT 95
[2019-02-04] MEDS: CIPROFLOXACIN 400 MG/D5W 200ML 200 ML 200 MG IVPB ×2 (02:27→14:26)
[2019-02-04 05:33] LABS: Hematocrit 34.9 % (37.0-47.0); Immature Platelet Fraction Pct 15.2 % (0.9-11.2); Mean Corpuscular HGB Conc 31.5 g/dl (32-36); Mean Corpuscular Hemoglobin 27.8 pg (26-34); Mean Corpuscular Volume 88.1 fl (80-100); Platelet Count Result 82 k/mm3 (150-375); Red Blood Count 3.96 M/mm3 (4.2-5.4); Red Cell Distribution Width 16.1 % (11.5-14.5); White Blood Count 12.1 K/mm3 (4.5-10.0)
[2019-02-04 06:00] VITALS: BP 119/57; PULSE 107; RESP 22; TEMP 37.6; O2SAT 94
[2019-02-04 07:17] LABS: Blood Urea Nitrogen 26 mg/dL (7-17); Calcium 8.6 mg/dL (8.4-10.2); Carbon Dioxide 24 mmol/L (22-30); Chloride 101 mmol/L (98-107); Estimated CRCL calculation 56 ml/min; Estimated Glomerular Filt Rate 46; Glucose 154 mg/dL (65-105); Potassium 2.8 mmol/L (3.4-5.0); Sodium 133 mmol/L (137-145)
[2019-02-04] MEDS: FENOFIBRATE 160 MG TABLET PO (08:23)
[2019-02-04] MEDS: ROSUVASTATIN 10 MG TABLET 20 MG PO (08:24)
[2019-02-04] MEDS: SERTRALINE HCL 50 MG TABLET PO (08:24)
[2019-02-04] MEDS: OXYBUTYNIN CHLORIDE 5 MG TABLET PO ×2 (08:24→14:25)
[2019-02-04] MEDS: VARENICLINE 1 MG TABLET PO (08:24)
[2019-02-04] MEDS: PANTOPRAZOLE SOD SESQUIHYDRATE 20 MG TAB PO (08:24)
[2019-02-04] MEDS: buPROPion HCL 100 MG TABLET PO (08:24)
[2019-02-04] MEDS: TOPIRAMATE 100 MG TABLET 200 MG PO (08:24)
[2019-02-04] MEDS: POTASSIUM CHLORIDE 20 MEQ TABLET 40 MEQ PO ×2 (08:24→13:39)
[2019-02-04] MEDS: DOCUSATE SODIUM 100 MG CAPSULE PO (08:35)
--- NOTE | 2019-02-04 09:18 | WPDUROPN2 ---
Progress Note: A&P Assessment and Plan (1) Acute UTI: Code(s): N39.0 - Urinary tract infection, site not specified Status: Acute Assessment and Plan: Ok to discharge home with oral Cipro x 10 days, she is from [place] and sees a Urologist there, she will follow up with them to have her stone addressed/stent removed. (2) Hydronephrosis with renal and ureteral calculus obstruction: Code(s): N13.2 - Hydronephrosis with renal and ureteral calculous obstruction Status: Acute Subjective Subjective Date/Time Seen: 02/04/19 09:18 POD #2 Cystoscopy, left ureteroscopy, left stent placement Review of Systems Respiratory: Respiratory: Reports no additional respiratory complaints Gastrointestinal: Gastrointestinal: Reports abdominal pain (stent irritation) Genitourinary: Genitourinary: Denies hematuria, Denies pelvic pain, Denies flank pain, Denies urinary incontinence, Denies urinary hesitancy and Denies urinary urgency Exam Resp: Effort & Inspection: normal respiratory effort Cardio: Rate: regular rate GI: Palpation (GI): No tender Objective Data Vital Signs Vital Signs: Vital Signs - 24 hr 02/03/19 14:00 02/03/19 19:50 02/03/19 21:59 Temperature 98.8 F 99.6 F Pulse Rate 88 88 108 H Respiratory Rate 18 18 22 H Blood Pressure 111/83 100/57 L Pulse Oximetry 97 97 95 02/04/19 06:00 Temperature 99.6 F Pulse Rate 107 H Respiratory Rate 22 H Blood Pressure 119/57 L Pulse Oximetry 94 L Intake/Output Intake/Output: Intake & Output 02/01/19 02/02/19 02/03/19 02/04/19 23:59 23:59 23:59 23:59 Intake Total 1400 2170 150 Output Total 1250 600 Balance 1400 920 -450 Meds/Results Medications: Active Medications Generic Name Dose Route Start Last Admin Trade Name Freq PRN Reason Stop Dose Admin Acetaminophen 650 mg 02/02/19 16:43 Tylenol Tablet PO Q4H PRN Mild Pain (1-3) or Fever Hydrocodone Bitart/Acetaminophen 1 tab 02/02/19 18:55 02/03/19 09:46 [place] 5-325 Mg PO 1 tab Q4H PRN Administration Pain Rated 1-6 Bupropion HCl 100 mg 02/03/19 09:00 02/04/19 08:24 Wellbutrin PO 100 mg BID CIARAN Administration Dextrose 12.5 gm 02/02/19 22:28 Dextrose 50% Syringe IV PUSH PRN PRN Hypoglycemia Protocol Dextrose 12.5 gm 02/02/19 23:31 Dextrose 50% Syringe IV PUSH PRN PRN Hypoglycemia Protocol Docusate Sodium 100 mg 02/02/19 18:55 02/04/19 08:35 Colace Cap PO 100 mg BID CIARAN Administration Enoxaparin Sodium 40 mg 02/03/19 09:00 02/03/19 09:21 Lovenox SUB-Q Not Given DAILY CIARAN Fenofibrate 160 mg 02/03/19 09:00 02/04/19 08:23 Fenofibrate PO 160 mg DAILY CIARAN Administration Glucagon 1 mg 02/02/19 22:28 Glucagon For Inj IM PRN PRN Hypoglycemia Protocol Glucagon 1 mg 02/02/19 23:31 Glucagon For Inj IM PRN PRN Hypoglycemia Protocol Glucose 15 gm 02/02/19 22:28 Glutose 15 PO PRN PRN Hypoglycemia Protocol Glucose 15 gm 02/02/19 23:31 Glutose 15 PO PRN PRN Hypoglycemia Protocol Ciprofloxacin/Dextrose 200 mls @ 200 mls/hr 02/03/19 03:00 02/04/19 03:30 Cipro 400 Mg/D5w 200 Ml IVPB 200 mls/hr Q12H CIARAN Infusion Dextrose 1,000 mls @ 100 mls/hr 02/02/19 22:28 Dextrose 5% 1,000 Ml IVPB PRN PRN Hypoglycemia Protocol Dextrose 1,000 mls @ 100 mls/hr 02/02/19 23:31 Dextrose 5% 1,000 Ml IVPB PRN PRN Hypoglycemia Protocol Insulin Aspart 2 - 5 units 02/03/19 08:00 02/03/19 17:53 Novolog SUB-Q 2 units TIDWM CIARAN Administration Protocol Mirtazapine 15 mg 02/02/19 22:40 02/03/19 20:54 Remeron PO 15 mg HS CIARAN Administration Montelukast Sodium 10 mg 02/02/19 22:23 Singulair PO DAILY PRN Dyspnea Morphine Sulfate 2 mg 02/02/19 18:55 02/02/19 22:36 Morphine Sulfate Inj IV PUSH 2 mg
[2019-02-04 10:15] LABS: Glucose Point of Care 138 (65-105)
--- NOTE | 2019-02-04 13:06 | DS_ITS ---
DATE OF DISCHARGE: HOSPITAL COURSE: The patient underwent cystoscopy, left retrograde pyelogram, left ureteral stent placement per Dr. Dell Brody on February 02, 2019. The patient tolerated procedure well, was transferred to Recovery in stable condition and to the floor for further observation. The patient has continued to do well. Ongoing cultures were resulted today. The patient will continue Cipro by mouth at home. Culture is positive for E. coli, but showed sensitivity to ciprofloxacin. The patient will resume a normal diet at home. Activity as tolerated. Resume all home medications including Cipro. The patient will follow up with her previous urologist at home to address the stone and the stent. Abigail I MT: [place]
[2019-02-04 14:00] VITALS: BP 118/58; PULSE 91; RESP 18; TEMP 36.9; O2SAT 94
[2019-02-04 14:39] LABS: Glucose Point of Care 218 (65-105)
--- NOTE | 2019-02-04 14:49 | PM.DS ---
DS: Diagnosis Admitting Diagnosis Admitting Diagnosis: Hydronephrosis with renal and ureteral calculous obstruction Discharge Diagnosis (1) Acute UTI: Code(s): N39.0 - Urinary tract infection, site not specified Status: Acute Assessment and Plan: Switch from iv to PO cipro for 10 days. (2) Kidney stones: Code(s): N20.0 - Calculus of kidney Status: Acute Assessment and Plan: Pt sp Cystoscopy, lleft ureteral stent placement under urology. Urine with e coli, sensitive to cipro (3) Hypokalemia: Code(s): E87.6 - Hypokalemia Status: Acute Assessment and Plan: Due saline diuresis. Replaced with PO KCL. (4) Diabetes mellitus: Code(s): E11.9 - Type 2 diabetes mellitus without complications Status: Chronic Assessment and Plan: A1c. Sliding scale insulin. Resume home regimen. (5) Depression: Code(s): F32.9 - Major depressive disorder, single episode, unspecified Status: Chronic Assessment and Plan: Mood stable. Patient has bipolar disease. She is on Wellbutrin, Zoloft and Remeron (6) Anxiety: Code(s): F41.9 - Anxiety disorder, unspecified Status: Chronic Assessment and Plan: Mood stable. Continue with Wellbutrin, Remeron, Zoloft (7) Ureteral stone with hydronephrosis: Code(s): N13.2 - Hydronephrosis with renal and ureteral calculous obstruction Status: Acute Assessment and Plan: Stented per Urology.See above (8) HTN (hypertension): Code(s): I10 - Essential (primary) hypertension Status: Chronic Assessment and Plan: Continue home regimen. . (9) HLD (hyperlipidemia): Code(s): E78.5 - Hyperlipidemia, unspecified Status: Chronic Assessment and Plan: Continue with fenofibrate and Crestor (10) Glaucoma: Code(s): H40.9 - Unspecified glaucoma Status: Chronic Assessment and Plan: Continue home regimen (11) Epilepsy: Code(s): G40.909 - Epilepsy, unspecified, not intractable, without status epilepticus Status: Chronic Assessment and Plan: Topamax DS: Summary Hospital Course Reason for hospitalization: Abdominal pain and back pain Hospital Course: Admitted with pain in abdomen and back. Imaging showed left ureteral stone with hydroureter. Left nephrostomy tube was placed. By day of discharge, she had mild left flank and back discomfort and mild dysuria. She was tolerating diet and ambulating independently. Status at Discharge Functional status at discharge: independent ambulation Overall status at discharge: patient is back to baseline Time Spent with Patient Time attestation: Total time spent providing and/or coordinating discharge services: Time spent: Greater than 30 minutes Exam Narrative: Exam Narrative: HEENT: EOMI, PERRL, pharyngeal mucosa pink and intact NECK: No JVD, adenopathy, or thyromegaly CHEST: Clear to auscultation. Normal effort. HEART: NL S1/S2, regular, no murmur ABDOMEN: BS+, soft, nontender, no mass, no bruits EXTREMITIES: No cyanosis, edema, or clubbing NEUROLOGIC: CN intact and symmetric to inspection. MUSCULOSKELETAL: Tone and strength symmetric. PSYCH: Alert. Oriented to person, place, and time. DS: Data Data Completed and Pending Labs on day of discharge: Labs from last 24 hours 02/04/19 02/04/19 02/04/19 14:28 09:08 05:10 WBC RBC Hgb Hct MCV MCH MCHC RDW Plt Count MPV % Immature Plt Fraction Sodium 133 L Potassium 2.8 L* Chloride 101 Carbon Dioxide 24 BUN 26 H Creatinine 1.20 H Estim Creat Clear Calc 56 Estimated GFR 46 L Glucose 154 H POC Capillary Glucose 218 H 138 H Calcium 8.6 02/04/19 02/03/19 02/03/19 05:10 20:53 17:50 WBC 12.1 H RBC 3.96 L Hgb 11.0 L Hct 34.9 L MCV 88.1 MCH 27.8 MCHC 31.5 L RDW 16.1 H Plt Count 82 L MPV 14.0 H % Immature Plt
[2019-02-04] MEDS: INSULIN ASPART (*BKC) 100 UNITS/ML SUB-Q (15:04)
[2019-02-04 15:31] LABS: Blood Urea Nitrogen 24 mg/dL (7-17); Calcium 8.9 mg/dL (8.4-10.2); Carbon Dioxide 21 mmol/L (22-30); Chloride 103 mmol/L (98-107); Estimated CRCL calculation 56 ml/min; Estimated Glomerular Filt Rate 46; Glucose 258 mg/dL (65-105); Potassium 3.5 mmol/L (3.4-5.0); Sodium 135 mmol/L (137-145)
--- NOTE | 2019-02-04 15:31 | PCSTNOTE ---
Please refer to the Modified Barium Swallow Evaluation in the EMR.
== END 2019-02-04 17:00 | disposition home or self-care (01) ==
LOC: ANHED 16:08 → ANHSURGERY 16:31 → ANH2MED 18:53 → ANHSURGERY 19:59 → ANHED 20:20 → ANH2MED 20:38 → ANHED 07-23 07:06 → ANHSURGERY 07-23 07:06 → ANH2MED 07-23 07:06 → ANHED 07-23 07:06
PROVIDERS: Family Medicine; Internal Medicine; Nurse Practitioner; Admitting Provider Urology; Emergency Provider Emergency Medicine; Visit Provider Urology
PROC: (CPT 52352; principal; 2019-02-02 17:15)
DX: A41.9 Sepsis, unspecified organism (principal); N13.6 Pyonephrosis; B96.20 Unspecified Escherichia coli [E. coli] as the cause of diseases classified elsewhere; E87.6 Hypokalemia; N17.9 Acute kidney failure, unspecified; R13.10 Dysphagia, unspecified; E11.9 Type 2 diabetes mellitus without complications; F31.9 Bipolar disorder, unspecified; F41.9 Anxiety disorder, unspecified; I10 Essential (primary) hypertension; E78.5 Hyperlipidemia, unspecified; H40.9 Unspecified glaucoma; G40.909 Epilepsy, unspecified, not intractable, without status epilepticus; F17.210 Nicotine dependence, cigarettes, uncomplicated; G20 Parkinson's disease; Z79.4 Long term (current) use of insulin; Z79.899 Other long term (current) drug therapy; Z86.73 Personal history of transient ischemic attack (TIA), and cerebral infarction without residual deficits; Z90.49 Acquired absence of other specified parts of digestive tract; Z88.0 Allergy status to penicillin; Z91.040 Latex allergy status
CPT/HCPCS: 52332; 36415; 74018; 74176; 74230; 74420; 80048; 80053; 81001; 81003; 83036; 84484; 85025; 85027; 87077; 87086; 87088; 87186; 92611; 93005; 96361; 96365; 96375; 99285; A9270; C1769; C2617; G0378; J0744; J1815; J1885; J2270; J2704; J7120